=== PATIENT | female | born 2000 | race Caucasian/White ===

== ENCOUNTER 2020-07-14 17:13 | Outpatient (REF) | payer MEDICAID, SELFPAY | END 2020-07-14 17:14 | disposition home or self-care (01) | LOC: HO.LAB 17:13 | PROVIDERS: Visit Provider Internal Medicine | DX: Z20.828 Contact with and (suspected) exposure to other viral communicable diseases (principal) | CPT/HCPCS: C9803; U0003 ==

== ENCOUNTER → 2020-07-16 11:38 | Outpatient (BNVA) | payer MEDICAID, SELFPAY | PROVIDERS: Visit Provider Advanced Practice Midwife | DX: Z30.431 Encounter for routine checking of intrauterine contraceptive device (principal) | CPT/HCPCS: 99212 ==

== ENCOUNTER 2020-09-30 15:50 | Emergency (ER) | payer MEDICAID, SELFPAY ==
[2020-09-30 18:47] VITALS: BP 117/81; PULSE 80; RESP 16; TEMP 37.1; O2SAT 99; BMI 33.0
--- NOTE | 2020-09-30 19:11 | ED_ITS ---
HPI - Back Pain/Injury General Chief Complaint: Back Pain/Injury Stated Complaint: back pain Source: patient Mode of arrival: ambulatory Limitations: no limitations History of Present Illness HPI Narrative: Patient presents to the ED for left lower back pain after picking up her son's toy. Patient states she bent down and got up quickly and then felt pain in her lower back. Patient denies falling to the ground or any blunt trauma to the back. Patient states no abdominal pain, nausea, vomiting, fever, chills, dysuria, hematuria, or flank pain. MD elicited complaint: back pain Related Data Previous Rx's Medication Instructions Recorded ibuprofen 600 mg tablet 600 mg PO Q8H PRN #60 tab 07/16/20 cyclobenzaprine 10 mg PO TID PRN #15 tab 09/30/20 naproxen 500 mg PO BID PRN #20 tab 09/30/20 Allergies Allergy/AdvReac Type Severity Reaction Status Date / Time No Known Allergies Allergy Verified 07/16/20 11:46 [No Known Allergies*] Review of Systems Review of Systems: Yes all other systems are reviewed and are negative Constitutional: Constitutional: Reports as per HPI and Reports no additional constitutional complaints Eyes: Eyes: Reports as per HPI and Reports no additional eye complaints ENT: Reports system reviewed and no additional complaints, except as documented and Reports as per HPI Cardiovascular: Cardiovascular: Reports as per HPI and Reports no additional cardiovascular complaints Respiratory: Respiratory: Reports as per HPI and Reports no additional respiratory complaints Gastrointestinal: Gastrointestinal: Reports as per HPI and Reports no additional gastrointestinal complaints Genitourinary: Genitourinary: Reports no additional female genitourinary complaints and Reports as per HPI Musculoskeletal: Musculoskeletal: Reports no additional musculoskeletal complaints, Reports as per HPI and Reports back pain Neurologic: Reports system reviewed and no additional complaints, except as documented and Reports as per HPI Psychiatric: Psychiatric: Reports no additional psychiatric complaints and Reports as per HPI PMFSH Past Medical History Medical History No active medical problems Surgical History No history of previous surgery Family History Family History Mother HTN (hypertension) Maternal Grandmother HTN (hypertension) Maternal Grandfather Diabetes mellitus Maternal Aunt Uterine cancer Social History Social History Alcohol intake: never Smoking Status: Former smoker Use of substances other than those prescribed or required for medical reasons: No Any prior treatment program specific to substance use: No Advance Directives: No Advance Directives Information Provided: No Gender identity: female Physical Exam Vital Signs: Vital Signs: Last Vital Signs Temp 98.7 F 09/30/20 18:47 Pulse 80 09/30/20 18:47 Resp 16 09/30/20 18:47 BP 117/81 09/30/20 18:47 Pulse Ox 99 09/30/20 18:47 Body Mass Index 33.0 Const: General: cooperative, healthy appearing, comfortable, no acute distress, well developed, alert and awake Orientation/consciousness: patient oriented x3 HENMT: Head: Yes normal to inspection, Yes No palpable skull fracture present, Yes normocephalic, Yes atraumatic and Yes abrasion Eyes: General: appearance normal, both eyes and all related structures Neck: Neck: Yes normal visual inspection, Yes full ROM, Yes no lymphadenopathy, Yes no meningeal signs, Yes trachea midline, Yes supple and No tender Chest: Chest palpation & inspection: normal inspection of the chest and normal palpation of entire chest wall Resp: Effort & Inspection: normal respiratory effort and able to speak in complete sentences Auscultation: clear to auscultation bilaterally Cardio: Jugular venous distension: no JVD Heart sounds: S1 normal heart sound present and S2 normal heart sound present GI: Inspection: Yes normal to inspection and No abdominal wall ecchymosis Palpation (GI): Soft to palpation, not firm, nontender, no guarding and not rigid : General: No CVA tenderness and Yes no CVA tenderness Back/Spine/Pelvis: Back: no CVA tenderness, No CVA tenderness and back tenderness (Positive for left lumbar muscular pain. Negative for spine tenderness) Skin: General skin exam: no rashes or lesions noted and elasticity normal Neuro: General: patient oriented x3, no meningeal signs and CN's II-XI intact bilaterally Cranial nerves: Yes CN's II-XII intact bilaterally Extrem: General: Yes normal to inspection and Yes full ROM Psych: Appearance: grossly normal, well kempt and not disheveled Course Course Course Narrative: History physical exam indicate muscular back pain. Negative for x-ray indication. Negative for spine tenderness. Reevaluation(s) Reevaluation #1: Patient will be discharged with naproxen and Flexeril. Patient states she is not . No need for imaging. Negative for spine tenderness negative for CVA flank. Time: 19:22 MDM - Back Pain/Injury MDM Narrative Medical decision making narrative: Back strain Discharge Plan Discharge Clinical Impression: Back strain Patient Disposition: Home, Self-Care Instructions: Low Back Strain (ED) Additional Instructions: Return to the ED immediately for any abdominal pain, nausea, vomiting, fever, chills, dysuria, hematuria, flank pain, weakness, dizziness, or any other concerning symptoms. Follow up with PCP Prescriptions: New naproxen 500 mg tablet 500 mg PO BID PRN (Reason: pain) Qty: 20 RF: 0 cyclobenzaprine 10 mg tablet 10 mg PO TID PRN (Reason: muscle spasm) Qty: 15 RF: 0 No Action ibuprofen 600 mg tablet 600 mg PO Q8H PRN (Reason: pain) Qty: 60 RF: 0 Stand Alone Forms: Work/School Release Interventions: ED Discharge Assessment Last Done: 09/30/20 19:41 Discharge Date/Time: 09/30/20 19:54 Print Language: Moldovan
== END 2020-09-30 19:54 | disposition home or self-care (01) ==
PROVIDERS: Emergency Provider Internal Medicine
DX: S39.012A Strain of muscle, fascia and tendon of lower back, initial encounter (principal); X58.XXXA Exposure to other specified factors, initial encounter; Y93.9 Activity, unspecified; Y92.9 Unspecified place or not applicable; Y99.9 Unspecified external cause status; Z79.899 Other long term (current) drug therapy; Z87.891 Personal history of nicotine dependence
CPT/HCPCS: 99283; 99284

== ENCOUNTER 2021-09-01 19:25 | Emergency (ER) | payer MEDICAID, SELFPAY ==
[2021-09-01 19:51] VITALS: BP 154/90; PULSE 94; RESP 18; TEMP 36.8; O2SAT 99; BMI 32.1
[2021-09-01 20:17] LABS: COVID-19 Test Positive (Negative)
--- NOTE | 2021-09-02 04:25 | ED_ITS ---
HPI - General Adult General Chief complaint: General Medical Stated complaint: sore throat, nausea Time Seen by Provider: 09/02/21 03:44 Source: patient Mode of arrival: ambulatory History of Present Illness HPI narrative: 21-year-old female without significant past medical history presents with sore throat, cough, nasal congestion, and headache with subjective low-grade fevers denies any shortness of breath. Patient states that she was vaccinated in the summer with Pfizer. Related Data Previous Rx's Medication Instructions Recorded ibuprofen 600 mg tablet 600 mg PO Q8H PRN #60 tab 07/16/20 cyclobenzaprine 10 mg tablet 10 mg PO TID PRN #15 tab 09/30/20 naproxen 500 mg tablet 500 mg PO BID PRN #20 tab 09/30/20 Allergies Allergy/AdvReac Type Severity Reaction Status Date / Time No Known Allergies Allergy Verified 09/01/21 19:51 [No Known Allergies*] Review of Systems Review of Systems: Pertinent positives and negatives as stated in HPI 10 point review of systems is otherwise negative. PMFSH Past Medical History Source: nursing notes reviewed Medical History No active medical problems Surgical History No history of previous surgery Family History Family History Mother HTN (hypertension) Maternal Grandmother HTN (hypertension) Maternal Grandfather Diabetes mellitus Maternal Aunt Uterine cancer Social History Social History Alcohol intake: never Advance Directives: No Advance Directives Information Provided: Yes Patient : No Gender identity: Female Physical Exam Vital Signs: Vital Signs: Last Vital Signs Temp 98.3 F 09/01/21 19:51 Pulse 94 09/01/21 19:51 Resp 18 09/01/21 19:51 BP 154/90 H 09/01/21 19:51 Pulse Ox 99 09/01/21 19:51 BMI result Body Mass Index 32.1 VITAL SIGNS: Reviewed. GENERAL: Well developed, well nourished, in no acute distress. HEAD: Normocephalic/atraumatic EYES: PERRLA, EOMI EARS: Ext canals without abnormality, TMs non-bulging and non-erythematous NOSE: Nares patent bilateral OROPHARYNX: no oral lesions noted, posterior pharynx clear and non-erythematous without noted tonsillar enlargement/erythema/exudates NECK: Supple, no adenopathy LUNGS: Normal breath sounds. No adventitious sounds or accessory muscle use. SpO2<99> CARDIOVASCULAR: Regular rate and rhythm without noted murmurs ABDOMEN: Soft, non-tender, non-distended with bowel sounds. NEUROLOGIC: Alert and oriented x 4. Course Course Course Narrative: 21-year-old female with history and clinical presentation consistent with viral syndrome and on review of laboratory investigations she is noted to be COVID-19 positive and was counseled on all isolation procedures as per state and Federal guidelines. Medical Decision Making Lab Data Labs: Lab Results 09/01/21 Range/Units 19:57 COVID-19 ([facility]) Positive A (Negative) COVID-19 Clin Com See Note Discharge Plan Discharge Clinical Impression: Lab test positive for detection of COVID-19 virus, Viral syndrome Patient Disposition: Home, Self-Care Instructions: Viral Syndrome (ED), COVID-19 (Coronavirus Disease 2019) (ED) Additional Instructions: 1. Recommend [id number] Tylenol/ibuprofen as needed for headaches, body aches, temperatures greater than 100.4. Increase fluid hydration especially with water. Consider a cool mist humidifier at your bedside while sleeping at night. 2. Your COVID-19 test was positive today and you are required to isolate for 14 days and follow all state and Federal guidelines. 3. Follow-up with your primary care provider via telemedicine appointment for re-evaluation and further outpatient management. Return to the ER for worsening symptoms. Prescriptions: No Action naproxen 500 mg tablet 500 mg PO BID PRN (Reason: pain) Qty: 20 RF: 0 cyclobenzaprine 10 mg tablet 10 mg PO TID PRN (Reason: muscle spasm) Qty: 15 RF: 0 ibuprofen 600 mg tablet 600 mg PO Q8H PRN (Reason: pain) Qty: 60 RF: 0 Referrals: [facility] [Primary Care Provider] - 2 days
== END 2021-09-02 05:03 | disposition home or self-care (01) ==
PROVIDERS: Emergency Provider Student in an Organized Health Care Education/Training Program
DX: U07.1 COVID-19 (principal); B34.9 Viral infection, unspecified
CPT/HCPCS: 87635; 99283

== ENCOUNTER 2022-01-21 22:36 | Emergency (ER) | payer MEDICAID, SELFPAY ==
[2022-01-21 23:25] VITALS: BP 125/77; PULSE 73; RESP 18; TEMP 37.2; O2SAT 97; BMI 29.9
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
[2022-01-22 03:20] VITALS: BP 128/78; PULSE 77; RESP 16; TEMP 37.1; O2SAT 97
== END 2022-01-22 03:21 | disposition home or self-care (01) ==
PROVIDERS: Emergency Provider Emergency Medicine Emergency Medical Services
DX: S13.4XXA Sprain of ligaments of cervical spine, initial encounter (principal); S43.401A Unspecified sprain of right shoulder joint, initial encounter; S20.221A Contusion of right back wall of thorax, initial encounter; V43.62XA Car passenger injured in collision with other type car in traffic accident, initial encounter; Y93.9 Activity, unspecified; Y92.410 Unspecified street and highway as the place of occurrence of the external cause; Y99.9 Unspecified external cause status
CPT/HCPCS: 99282

== ENCOUNTER 2024-10-23 18:26 | Emergency (ER) | payer OTHER, SELFPAY ==
--- NOTE | ~2024-10-23 | XR_ITS ---
CLINICAL HISTORY: fall 3 views lumbar spine Comparison: None Findings: Normal vertebral body alignment. Age indeterminate nondisplaced fracture at the sacrococcygeal junction. Vertebral body heights and disc spaces are preserved. IMPRESSION: 1. Age indeterminate nondisplaced fracture at the sacrococcygeal junction. This document has been electronically signed by: Joselyn Corbett MD on 10/23/2024 19:22:42
--- NOTE | ~2024-10-23 | CT_ITS ---
CLINICAL HISTORY: Fall CT cervical spine without contrast Comparison: None Findings: Straightening of the cervical spine is likely positional. No acute fractures or dislocations. No acute findings on limited view of the intracranial contents. No cervical fluid collections or masses. Lung apices are clear. IMPRESSION: No acute findings. This document has been electronically signed by: Joselyn Corbett MD on 10/23/2024 19:33:52
--- NOTE | ~2024-10-23 | CT_ITS ---
CLINICAL HISTORY: fall CT head without contrast Comparison: None Findings: No intra-axial mass, midline shift, hydrocephalus, or acute hemorrhage. Martin-white matter differentiation is preserved. The visualized paranasal sinuses and mastoid air cells are normal. The orbits are unremarkable. There is no acute fracture. IMPRESSION: 1. No acute intracranial findings. This document has been electronically signed by: Joselyn Corbett MD on 10/23/2024 19:35:08
[2024-10-23 18:42] VITALS: BP 123/76; PULSE 70; RESP 18; TEMP 36.4; O2SAT 97; BMI 34.9
--- NOTE | 2024-10-23 18:50 | ED.GENADULT ---
HPI - General Adult General Chief complaint: Fall Stated complaint: fall back pain Time Seen by Provider: 10/23/24 22:36 Source: patient Mode of arrival: ambulatory Limitations: no limitations History of Present Illness ED Provider: DR. Yi HPI narrative: 24-year-old female slipped on the ice yesterday and fell backward hitting head and neck and lower back, no weakness, no numbness, no severe headache, no nausea, no vomiting. Related Data Previous Rx's ?Medication ?Instructions ?Recorded ibuprofen 600 mg tablet 600 mg PO Q8H PRN pain #60 tabs 07/16/20 cyclobenzaprine 10 mg tablet 10 mg PO TID PRN muscle spasm #15 09/30/20 tabs naproxen 500 mg tablet 500 mg PO BID PRN pain #20 tabs 09/30/20 ibuprofen 600 mg tablet 600 mg PO Q8H PRN pain #10 tabs 10/23/24 Allergies Allergy/AdvReac Type Severity Reaction Status Date / Time No Known Allergies Allergy Verified 10/23/24 18:45 [No Known Allergies*] Review of Systems Review of Systems: All other systems are reviewed and are negative Constitutional: Reports as per HPI and Reports no additional constitutional complaints Eyes: Reports as per HPI and Reports no additional eye complaints Reports system reviewed and no additional complaints, except as documented Cardiovascular: Reports as per HPI and Reports no additional cardiovascular complaints Respiratory: Reports as per HPI and Reports no additional respiratory complaints Gastrointestinal: Reports as per HPI and Reports no additional gastrointestinal complaints Genitourinary: Reports no additional female genitourinary complaints Musculoskeletal: Reports no additional musculoskeletal complaints Skin/Breast: Reports system reviewed and no additional complaints, except as docu Psychiatric: Reports no additional psychiatric complaints Endocrine: Reports no additional endocrine complaints Hematologic/Lymphatic: Reports no additional hematologic/lymphatic complaints Allergic/Immunologic: Reports no additional allergic/immunologic complaints Reports system reviewed and no additional complaints, except as documented and Reports Abnormal speech present [facility] Past Medical History Medical History No active medical problems Surgical History No history of previous surgery Family History Family History Mother HTN (hypertension) Maternal Grandmother HTN (hypertension) Maternal Grandfather Diabetes mellitus Maternal Aunt Uterine cancer Social History Social History Alcohol intake: never Advance Directives: No Advance Directives Information Provided: No Do you have a plan to hurt others: No Plan Patient : No Gender identity: Female Physical Exam ED Vital Signs: Vital Signs - 24 hr 10/23/24 18:42 10/23/24 23:06 10/23/24 23:37 Temperature 97.6 F 97.8 F 98.4 F Pulse Rate 70 66 82 Respiratory Rate 18 16 16 Blood Pressure 123/76 128/82 132/70 Pulse Oximetry 97 98 Oxygen Delivery Method Room Air Room Air BMI result Body Mass Index 34.9 Vital signs have been reviewed and appear to be correct. Blood pressure elevated. Heart rate normal. Respiratory rate normal. Temperature normal. Oxygen saturation normal. Appearance: Alert. Oriented X3. No acute distress. Head: Normal external exam. Normocephalic. Atraumatic. No Baer signs noted. No raccoon eyes noted Eyes: PERRLA. EOMI. Conjunctiva and sclera normal. Eyelids normal. ENT: TM's Normal. Pharynx normal. Uvula midline. Moist mucous membranes. No trismus noted. No drooling noted. No muffled voice noted. Neck: Normal inspection. Neck supple. FROM. No adenopathy. Thyroid Normal. No meningeal signs. No neck mass noted. CVS: Normal heart rate and rhythm. Heart sound normal. No murmurs noted. Pulses normal throughout. Respiratory: No respiratory distress. Painless inspiration. Breath sounds normal. No wheezes/rales/rhonchi noted. Chest nontender. No accessory muscle usage noted or decreased air movement noted. Abdomen: Soft and nontender. Bowel sounds normal in all 4 quadrants. No distention noted. No organomegaly noted. No visible injury noted. Back: No CVA tenderness. Full range of motion noted. A mild tenderness over the coccygeal process. Skin: Skin warm and dry. Normal skin color. Normal skin turgor. No rashes/lesions/lacerations noted. Extremities: No lower extremity edema. Extremities exhibit normal range of motion. Extremities nontender. Neuro: Mental status: Normal attention, orientation, memory, and affect. Cranial nerves: Pupils are equal, round and reactive to light, EOMI, visual berrios are fall, face is symmetric, facial sensations are normal. Motor examination normal muscle tone, strength to 4 extremities. DTR are +2, planter's are flexor. Sensory exam; normal coordination, no ataxia, gait stable. Cerebellar exam: [id number]-fv-cski and oheu-qg-smkn is normal. Extrapyramidal system: No tremors, no rigidity with normal facial expressions. Pronator drift not present Course Course Course Narrative: RME: 24-year-old female presents to ED for headache and low back pain after slipping and falling on ice yesterday. Patient denies any nausea vomiting chest pain shortness of breath abdominal pain. Patient states just headache and low back pain Reevaluation(s) Reevaluation #1: Sacrococcygeal junction fracture, no neurological deficit, able to ambulate on toes and heels in the emergency department. Time: 23:05 Medical Decision Making Differential Diagnosis Differential Diagnoses: The differential diagnosis associated with the presentation includes ( Intracranial bleed, cervical spine injury, chest injury, abdominal injury, extremity injury, lower back injury.) Admission/Observation Consideration of admission/observation: Escalation of care including admission/observation considered Independent Interpretation I performed an independent interpretation of an: Plain X-Ray ( Lumbar spine x-ray:Normal vertebral body alignment. Age indeterminate nondisplaced fracture at the sacrococcygeal junction. Vertebral body heights and disc spaces are preserved.) and CT Scan ( Head and cervical spine: No acute intracranial pathology, no cervical spine fracture.) Radiology Impression Discussion of test interpretation with radiology: I have reviewed the radiologist's reading. Discharge Plan Discharge Clinical Impression: Fall, Closed fracture of coccyx Patient Disposition: Home, Self-Care Instructions: Coccyx Injury (ED) Prescriptions: New ibuprofen 600 mg tablet 600 mg PO Q8H PRN (Reason: pain) Qty: 10 0RF No Action naproxen 500 mg tablet 500 mg PO BID PRN (Reason: pain) Qty: 20 0RF cyclobenzaprine 10 mg tablet 10 mg PO TID PRN (Reason: muscle spasm) Qty: 15 0RF Rx Instructions: side effect is drowsiness. Do not take at work or while driving. ibuprofen 600 mg tablet 600 mg PO Q8H PRN (Reason: pain) Qty: 60 0RF Rx Instructions: To be taken during first few days for menses (heavier bleeding/uterine cramping). Interventions: ED Discharge Assessment Last Done: 10/23/24 23:37 Discharge Date/Time: 10/23/24 23:40 Print Language: [place] Leonean
--- NOTE | 2024-10-23 22:39 | PC.NURSE ---
pt brought back from ED WR, resting on ED stretcher, awaiting provider evaluation.
--- OUTSIDE RECORDS SUMMARY | 2024-10-23 22:45 | XMS_ITS | Clinical Summary ---
Author Organization [employer] Address [address] [place] [address] Care Team Providers Care Commutator V Ring Assembler Name Role Phone Unavailable Primary Care Provider Unavailabl e Encounters Date Type Department Care Team Description 09/02/2024 Telephone [facility] [address] [place] [address] Janice Soni NP medical question from Last 3 Months Social History Tobacco Use Types Packs/Day Years Used Date Smoking Tobacco: Never Assessed Comments Unknown Sex and Gender Information Value Date Recorded Sex Assigned at Female 06/26/2022 10:30 AM EDT Legal Sex Female 10:30 AM EDT Gender Identity Female 06/26/2022 10:30 AM EDT Sexual Orientation Choose not to disclose 2021 10:30 AM EDT Last Filed Vital Signs Vital Sign Reading Time Taken Comments Blood Pressure 122/82 08/14/2019 12:12 AM EST Pulse 64 08/14/2019 12:12 AM EST Temperature - - Respiratory Rate - - Oxygen Saturation - - Inhaled Oxygen Concentration - - Weight 62.2 kg (137 lb 3.2 oz) 08/14/2019 12:12 AM EST Height 157.9 cm (5' 2.16 ) 08/14/2019 12:[address] Body Mass Index 24.97 08/14/2019 12:12 AM EST Plan of Treatment Health Maintenance Due Date Last Done Comments Depression Screening 2000 Alcohol/Substance Use Screening 2012 Tobacco Screening 2012 Family Planning (PISQ) 2015 Hepatitis A Vaccines (2 of 2 - 2-dose series) 02/15/2017 08/17/2016 Pap Smear 2021 COVID-19 Vaccine ( season) 2024 12/25/2020, 12/04/2020 Influenza Vaccine (#1) 2024 08/14/2019, 2015 DTaP/Tdap/Td Vaccines (7 - Td or Tdap) 01/19/2030 01/20/2020, 04/12/2012, 12/08/2004, Additional history exists Zoster Vaccines (1 of 2) 2050 RSV Patients and Patients Aged 60 years or older (1 - 1-dose 75+ series) 2075 HIB Vaccines Aged Out 04/10/2001, 09/28, 2000 No longer eligible based on patient's age to complete this topic Hepatitis B Vaccines Completed 04/10/2001, 2000, 2000 IPV Vaccines Completed 2004, 03/27, 2000, Additional history exists Meningococcal Vaccine Aged Out 03/28/2013 No meaghan eufemia eligible based on patient's age to complete this topic HPV Vaccines Completed 08/17/2016, 03/28/2013 Pneumococcal Vaccine: Pediatrics (0 to 5 Years) and At-Risk Patients (6 to 49) Years) Aged Out No longer eligible based on patient's age to complete this topic RSV under 20 months Aged Out No longe r eligible based on patient's age to complete this topic Rotavirus Vaccines Aged Out No longer eligible based on patient's age to complete this topic
--- OUTSIDE RECORDS SUMMARY | 2024-10-23 22:45 | XMS_ITS | Encounter Summary ---
Author Organization [facility] Address [address] [place] [address] Care Team Providers Care Distance Education Coordinator Name Role Phone Enrique Goddard MD Primary Care Provider Enrique Goddard MD Unavailable [phone] Encounter Details Date Type Department Care Team (Late st Contact Info) Description 10/16/2023 Scanned Document [facility] [address] [address] Gastroenterology, Scan Social History Tobacco Use Types Packs/Day Years Used Date Smoking Tobacco: Never Smokeless Tobacco: Never Alcohol Use Standard Drinks/Week Comments No 0 (1 standard drink = 0.6 oz pur e alcohol) Sex and Gender Information Value Date Recorded Sex Assigned at Not on file Gender Identity Not on file Sexual Orientation Not on file documented as of this encounter Plan of Treatment Not on file documented as of this encounter Visit Diagnoses Not on filedocumented in this encounter Care Teams Distance Education Coordinator Relationship Specialty Start Date End Date Enrique Goddard MD PCP - General Pediatric, General 04/27/16 Enrique Goddard MD Pediatric, General 04/27/16 documented as of this encounter
--- OUTSIDE RECORDS SUMMARY | 2024-10-23 22:45 | XMS_ITS | Encounter Summary ---
Author Organization [facility] Address [address] [place] [address] Care Team Providers Care Instrumentation And Controls Designer Name Role Phone Enrique Goddard MD Primary Care Provider Enrique Goddard MD Unavailable [phone] Encounter Details Date Type Department Care Team (Late st Contact Info) Description 05/03/2016 Scanned Document [facility] [address] [place] [phone] Meredith Blake, RAS [address] [place] [address] Social History Tobacco Use Types Packs/Day Years Used Date Smoking Tobacco: Never Alcohol Use Standard Drinks/Week Comments [...] on filedocumented in this encounter Care Teams Instrumentation And Controls Designer Relationship Specialty Start Date End Date Enrique Goddard MD PCP - General Pediatric, General 04/27/16 Enrique Goddard MD Pediatric, General 04/27/16 documented as of this encounter
--- OUTSIDE RECORDS SUMMARY | 2024-10-23 22:45 | XMS_ITS | Encounter Summary ---
Author Organization [facility] Address [address] [place] [address] Care Team Providers Care Investment Accountant Name Role Phone Enrique Goddard MD Primary Care Provider Enrique Goddard MD Unavailable Encounter Details Date Type Department Care Team (Late st Contact Info) Description 05/03/2016 Scanned Document [facility] [address] [place] [phone] Meredith Blake, RAS [address] [place] [address] Social History Tobacco Use Types Packs/Day Years [...] on filedocumented in this encounter Care Teams Investment Accountant Relationship Specialty Start Date End Date Enrique Goddard MD PCP - General Pediatric, General 04/27/16 Enrique Goddard MD Pediatric, General 04/27/16 documented as of this encounter
--- OUTSIDE RECORDS SUMMARY | 2024-10-23 22:45 | XMS_ITS | Encounter Summary ---
Author Organization [facility] Address [address] [place] [address] Care Team Providers Care Bobbin Drier Name Role Phone Enrique Goddard MD Primary Care Provider Enrique Goddard MD Unavailable Encounter Details Date Type Department Care Team (Late st Contact Info) Description 05/03/2016 Scanned Document [facility] [address] [place] [phone] Meredith Blake, RAS [address] [place] [address] Social History Tobacco Use Types Packs/Day Years [...] on filedocumented in this encounter Care Teams Bobbin Drier Relationship Specialty Start Date End Date Enrique Goddard MD PCP - General Pediatric, General 04/27/16 Enrique Goddard MD Pediatric, General 04/27/16 documented as of this encounter
--- OUTSIDE RECORDS SUMMARY | 2024-10-23 22:45 | XMS_ITS | Encounter Summary ---
Author Organization [facility] Address [address] [place] [address] Care Team Providers Care Cleaning Maid Name Role Phone Enrique Goddard MD Primary Care Provider [phone] Enrique Goddard MD Unavailable [phone] Encounter Details Date Type Department Care Team (Late st Contact Info) Description 05/03/2016 Scanned Document [facility] [address] [place] [phone] Meredith Blake, RAS [address] [place] [address] Social History Tobacco Use Types Packs/Day Years [...] on filedocumented in this encounter Care Teams Cleaning Maid Relationship Specialty Start Date End Date Enrique Goddard MD PCP - General Pediatric, General 04/27/16 Enrique Goddard MD Pediatric, General 04/27/16 documented as of this encounter
--- OUTSIDE RECORDS SUMMARY | 2024-10-23 22:45 | XMS_ITS | Clinical Summary ---
Author Organization [facility] Address [address] [place] [address] Care Team Providers Care Limerock Tower Loader Name Role Phone Enrique Goddard MD Primary Care Provider [phone] Enrique Goddard MD Unavailable [phone] Allergies No known active allergies Immunizations Name Administration Dates Next Due DTaP 12/08/2004,10/26/2003,2000 ,2000 HPV Quadrivalent 04/07/2016,03/28/2013 Hepatitis B 04/09/2001,2000,2000 IPV 2004,04/10/2001,2000 ,2000 MMR 2004,05/07/2001 Meningococcal MCV4O (Menveo) 04/24/2016,03/28/20 13 Tdap 04/11/2012 Varicella 04/12/2012,05/07/2001 Social History Tobacco Use Types Packs/Day Years Used Date Smoking Tobacco: Never Smokeless Tobacco: Never Alcohol Use Standard Drinks/Week Comments No 0 (1 standard drink = 0.6 oz pur e alcohol) Sex and Gender Information Value Date Recorded Sex Assigned at Not on file Gender Identity Not on file Sexual Orientation Not on file Last Filed Vital Signs Vital Sign Reading Time Taken Comments Blood Pressure 115/78 04/29/2019 2:58 PM EDT Pulse 68 04/29/2019 2:58 PM EDT Temperature 37.2 ??C (98.9 ??F) 04/29/2019 1:45 PM ED T Respiratory Rate 18 04/29/2019 2:58 PM EDT Oxygen Saturation 100% 04/29/2019 2:58 PM EDT Inhaled Oxygen Concentration - - Weight 62.1 kg (137 lb) 04/29/2019 1:45 PM EDT Height 154.9 cm (5' 1 ) 05/02/2016 1:21 PM EDT Body Mass Index - - Plan of Treatment Health Maintenance Due Date Last Done Comments Hepatitis C Virus Screening 2000 HIV Screening 2013 Pap Smear (Ages 21-65) 2021 DTaP/Tdap/Td Vaccines (6 - Td or Tdap) 04/11/2022 04/11/2012, 12/08/2004, 10/26/2003, Additional history exists Influenza Vaccine 03/27/2024 COVID-19 Vaccine ( season) 2024 Hepatitis B Vaccines Completed 04/09/2001, 2000, 2000 HPV Vaccines Completed 04/07/2016, 03/28/2013 Pneumococcal Vaccine: Pediatric (0-5 Years) and At-Risk Patients (6 to 49 Years) Aged Out No longer eligible based on patient's age to complete this topic Care Teams Limerock Tower Loader Relationship Specialty Start Date End Date Enrique Goddard MD PCP - General Pediatric, General 04/27/16 Enrique Goddard MD Pediatric, General 04/27/16
[2024-10-23 23:06] VITALS: BP 128/82; PULSE 66; RESP 16; TEMP 36.6; O2SAT 98
[2024-10-23 23:37] VITALS: BP 132/70; PULSE 82; RESP 16; TEMP 36.9
== END 2024-10-23 23:40 | disposition home or self-care (01) ==
PROVIDERS: Emergency Provider Emergency Medicine
DX: S32.2XXA Fracture of coccyx, initial encounter for closed fracture (principal); W00.0XXA Fall on same level due to ice and snow, initial encounter; R51.9 Headache, unspecified; Y93.89 Activity, other specified; Y92.89 Other specified places as the place of occurrence of the external cause; Y99.9 Unspecified external cause status
CPT/HCPCS: 70450; 72100; 72125; 99284

== ENCOUNTER → 2024-10-23 18:48 | Outpatient (BNV) | payer MEDICAID, SELFPAY | PROVIDERS: Visit Provider Radiology Diagnostic Radiology | DX: S09.90XA Unspecified injury of head, initial encounter (principal); S19.9XXA Unspecified injury of neck, initial encounter; S39.92XA Unspecified injury of lower back, initial encounter | CPT/HCPCS: 70450; 72100; 72125 ==

== ENCOUNTER 2025-03-11 13:57 | Outpatient (AMB) | payer OTHER, SELFPAY ==
[2025-03-11 14:04] VITALS: BP 132/78; PULSE 76; RESP 14; TEMP 37.3; O2SAT 97; BMI 35.4
--- NOTE | 2025-03-11 14:04 | MHC.PC.OV ---
Vital Signs 03/11/25 14:04 Height 5 ft 2 in Weight 193 lb 8 oz BMI 35.4 BP 132/78 Blood Pressure Location Lt brachial Position Sitting Respiration 14 Pulse 76 Temp 99.2 F Temp Source Oral Pulse Oximetry (%) 97 Oxygen Delivery Method Room Air Intake Visit Reasons: establish [facility] Blade Bender Furnace Tender Required: No Accompanied by: Self / Same As Patient Allergies No Known Allergies (No Known Allergies*) Allergy (Verified 03/11/25 14:10) Medication List - Last Reconciled 03/11/25 by NILSON Bruno cyclobenzaprine 10 mg PO TID PRN ibuprofen 600 mg PO Q8H PRN ibuprofen 600 mg PO Q8H PRN naproxen 500 mg PO BID PRN Tobacco use date assessed: 03/11/25 Dental Screening Dental Screen Date: 03/11/25 Did you have a dental visit in the last 12 months?: No Did you have a dental problem in the last 6 months where you did not have access to dental care?: No Was dental information given to patient?: No HPI establish care HPI Details Patient is a 24-year-old female who was presenting to [facility]. She is currently and is under the care of her OBGYN Previous PCP:More than 5 years ago Last visit: same Last PE:same Specialist:no OBGYN:Ricardo Rice. she is currently 14 WEEKS AND 4 days. Past medical history: Medications: Family HX: no Problem: The patient is a 24-year-old female presenting with back pain and management. The patient reports a history of coccyx fracture sustained in September after falling on ice. She continues to experience back pain, primarily localized to the right side, which occasionally becomes severe enough to impair her ability to stand or walk. She has not had a primary care provider for over five years and has not undergone a physical examination since she was 19 years old. The patient is currently 14 weeks and is receiving care from an PRIVATE DUTY NURSE in [place]. She is advised to avoid medications that could affect the fetus and to use topical treatments for pain management. Reports that she is due to deliver on September 04 2024 [facility] Medical History No active medical problems Surgical History No history of previous surgery Family History Mother HTN (hypertension) Maternal Grandmother HTN (hypertension) Maternal Grandfather Diabetes mellitus Maternal Aunt Uterine cancer Social History Housing: Apartment Alcohol intake: never Patient Tobacco Use Status: Never used Tobacco e-Cigarette/Vaping Use: Never Used service: No Current occupational status: employed Gender identity: Female Female Reproductive History Menstrual Age of Menarche: 11 Questionnaire PHQ-9 Over the last 2 weeks, how often have you been bothered by any of the following problems? 1. Little interest or pleasure in doing things: not at all 2. Feeling down, depressed, or hopeless: not at all 3. Trouble falling or staying asleep, or sleeping too much: not at all 4. Feeling tired or having little energy: not at all 5. Poor appetite or overeating: not at all 6. Feeling bad about yourself - or that you are a failure or have let yourself or your family down: not at all 7. Trouble concentrating on things, such as reading the newspaper or watching television: not at all 8. Moving or speaking so slowly that other people could have noticed. Or the opposite - being so fidgety or restless that you have been moving around a lot more than usual: not at all 9. Thoughts that you would be better off or of hurting yourself in some way: not at all Total score: 0 Depression Screening Interpretation: Negative Depression Screening Done: Yes 06237 - PHQ-9 Billing: Yes Source: Developed by Drs. Dada Ramires, Carol Shaw, Marck Fuentes and colleagues, with an educational yusuf from [employer]. Thrive Questionnaire Date Thrive assessed: 03/11/25 I am a: Patient What is your living situation today?: I have a steady place to live Within the past 12 months, did the food you bought not last and you didn't have the money to get more?: Never true Within the past 12 months, did you worry whether your food would run out before you got money to buy more?: Never true Do you have trouble paying for medicines?: No Do you have trouble getting transportation to medical appointments?: No Do you have trouble paying your heating and electricity bill?: No Do you have trouble taking care of your child, family member or friend?: No Do you have trouble with day-to-day activities such as bathing, preparing meals, shopping, managing finances, etc.?: No Are you currently unemployed and looking for a job?: No Are you interested in more education?: No Please select the resources that you would like help with: None Currently or been in a relationship where the following occur: No concerns reported THRIVE Score: 0 AUDIT C Alcohol Use Questionnaire (AUDIT-C) 1. How often do you have a drink containing alcohol?: Never Total Score: 0 JACQUELINE-7 AMB Questionnaire JACQUELINE-7 Date JACQUELINE - 7 assessed: 03/11/25 Feeling nervous, anxious, or on edge: 0 = Not at all Not being able to stop or control worryin = Not at all Worrying too much about different things: 0 = Not at all Trouble relaxin = Not at all Being so restless that it is hard to sit still: 0 = Not at all Becoming easily annoyed or irritable: 0 = Not at all Feeling afraid as if something awful might happen: 0 = Not at all Total JACQUELINE-7 score (0-4 normal; 5-9 mild; 10-14 moderate; 15-21 severe): 0 Source: Developed by Drs. Dada Ramires, Carol Shaw, Marck Fuentes and colleagues, with an educational yusuf from [employer]. JACQUELINE-7 Assessment Billing JACQUELINE-7 Assessment Tool: JACQUELINE-7 Assessment 85627 Review of Systems Const Denies headache(s) Eyes Denies loss of vision ENT Denies vertigo, Denies dizziness, Denies headache(s) and Denies sore throat Card Denies chest pain, Denies leg edema and Denies lightheadedness Resp Denies cough, Denies hemoptysis and Denies wheezing GI Denies abdominal pain, Denies melena, Denies constipation, Denies diarrhea and Denies vomiting Denies urinary frequency, Denies dysuria and Denies urinary urgency Musc Reports back pain (Lower back/coccyx-right side), Denies arthralgias, Denies joint swelling, Denies numbness and Denies tingling Neuro Denies Abnormal speech present, Denies behavioral changes, Denies vertigo, Denies dizziness, Denies headache(s), Denies loss of vision, Denies memory loss, Denies numbness and Denies tingling Psych Denies anxiety, Denies behavioral changes, Denies depression, Denies memory loss and Denies panic attacks Andrea/Lymph Denies easy bleeding and Denies easy bruising Aller/Immun Denies wheezing Physical exam (Primary Care) Vital Signs: Last Vital Signs Temp 99.2 F 03/11/25 14:04 Pulse 76 03/11/25 14:04 Resp 14 03/11/25 14:04 BP 132/78 03/11/25 14:04 Pulse Ox 97 03/11/25 14:04 Oxygen Delivery Method Room Air 03/11/25 14:04 BMI result Body Mass Index 35.4 Tobacco/Smoking Status: Tobacco use Status Tobacco use date assessed 03/11/25 03/11/25 14:08 Patient Tobacco Use Status Never used Tobacco 03/11/25 14:08 e-Cigarette/Vaping Use Never Used 03/11/25 14:08 PHQ-9: PHQ-9 Score PHQ-9: Total score 0 03/11/25 22:03 Depression Screening Interpretation: Negative Thrive Assessment: Date of Thrive Assessment Date Thrive assessed 03/11/25 03/11/25 14:08 Currently or been in a relationship where the following occur: No concerns reported Const General: healthy appearing, no acute distress, alert and awake Nutritional Appearance: well nourished Orientation/consciousness: oriented to person, oriented to place and oriented to time HENNC Ears: TM's normal bilaterally General nose exam: Normal nasal mucous membranes and turbinates present Eyes Conjunctivae: conjunctivae normal Sclerae: sclerae normal Pupils: Equal, round and reactive pupils present Neck Neck: Yes no lymphadenopathy and Yes no JVD Thyroid: Thyroid normal Carotids: no bruits Resp Effort & Inspection: normal respiratory effort and not tachypneic Auscultation: no crackles, no rales, no rhonchi and no wheezes Cardio Rate: regular rate Rhythm: regular rhythm Heart sounds: no murmurs and normal S1 and S2 GI Palpation (GI): Soft to palpation, nontender, no hepatomegaly and no splenomegaly Auscultation: normal bowel sounds General: Yes no CVA tenderness Back/Spine/Pelvis Back: no CVA tenderness Thoracic/Lumbar Spine: No lumbar spinal tenderness Coccyx: no swelling and no tenderness Skin General skin exam: no rashes or lesions noted and dry skin Neuro General: oriented to person, oriented to place and oriented to time Cranial nerves: Yes Equal, round and reactive pupils present Speech: No Abnormal speech present Gait exam (Neuro): Normal gait present Motor exam (neuro): no tremor noted Extrem Right upper extremity: full ROM Left upper extremity: full ROM Right lower extremity: full ROM; no edema Left lower extremity: full ROM; no edema Psych Mental Status: mental status grossly normal Speech and movement: Normal speech and movement present Affect: normal affect Attitude: cooperative Thought process: Normal thought process present Coding Level of Care Code New Pt Level 3 (06411) Diagnoses Encounter to establish care with new provider Z76.89 Right-sided low back pain without sciatica, unspecified chronicity M54.50 Chronicity: unspecified Back pain laterality: right Sciatica presence: without sciatica 14 weeks gestation of Z3A.14 Weeks of gestation: 14 weeks Additional Codes JACQUELINE-7 Assessment Billing - JACQUELINE-7 Assessment Tool: JACQUELINE-7 Assessment 55296 ([id number]) PHQ-9 - 48064 - PHQ-9 Billing: Yes ([id number]) Time Spent (min) 31 Assessment & Plan Assessment & Plan (1) Encounter to establish care with new provider: Code(s): Z76.89 - Persons encountering health services in other specified circumstances Category: Medical (2) Lower back pain: Code(s): M54.50 - Low back pain, unspecified Category: Medical Qualifiers: Chronicity: unspecified Back pain laterality: right Sciatica presence: without sciatica Qualified Code(s): M54.50 - Low back pain, unspecified (3) : Code(s): Z34.90 - Encounter for supervision of normal , unspecified, unspecified trimester Category: Medical Qualifiers: Weeks of gestation: 14 weeks Qualified Code(s): Z3A.14 - 14 weeks gestation of Plan The patient is advised to avoid medications that could potentially affect the fetus during her . Topical treatments, such as creams or biofreeze, are recommended for managing back pain. A lidocaine patch is prescribed to alleviate pain, with instructions to apply it as needed. The patient is scheduled for follow-up in eight months, with lab work to be completed a week prior to the appointment. Patient was informed and verbally consented to the use of an ambient scribe for clinic note documentation during this visit. Orders: Orders Hemoglobin A1c 8 Months Z - Persons encountering health services in other specified circumstances TSH reflex Free T4 8 Months Z. - Persons encountering health services in other specified circumstances Comprehensive Adel. Panel Fast 8 Months . - Persons encountering health services in other specified circumstances Complete Blood Count Auto Diff 8 Months Z. - Persons encountering health services in other specified circumstances UA CC w/rflx Micro + Cult 8 Months Z. - Persons encountering health services in other specified circumstances Lipid Panel 8 Months Z. - Persons encountering health services in other specified circumstances Vitamin D 25-OH Total 8 Months Z. - Persons encountering health services in other specified circumstances Medications: New lidocaine 5% leave on most painful area for up to 12 hrs 1 patch topical DAILY 30 ea 4RF
--- OUTSIDE RECORDS SUMMARY | 2025-03-11 14:46 | XMS_ITS | Encounter Summary ---
Author Organization [facility] Address [address] [place] [address] Care Team Providers Care Tester Semiconductor Packages Name Role Phone Enrique Goddard MD Primary Care Provider Enrique Goddard MD Unavailable Encounter Details Date Type Department Care Team (Late st Contact Info) Description 05/03/2016 Scanned Document [facility] [address] [place] [phone] Meredith Blake, RAS [address] [place] [address] Social History Tobacco Use Types Packs/Day Years Used Date Smoking Tobacco: Never Alcohol Use Standard Drinks/Week Comments No 0 (1 standard drink = 0.6 oz pur e alcohol) Comments No Sex and Gender Information Value Date Recorded Sex Assigned at Not on file Legal Sex Female 11:59 AM EDT Gender Identity Not on file Sexual Orientation Not on file documented as of this encounter Plan of Treatment Not on file documented as of this encounter Visit Diagnoses Not on filedocumented in this encounter Care Teams Tester Semiconductor Packages Relationship Specialty Start Date End Date Enrique Goddard MD PCP - General Pediatric, General 04/27/16 Enrique Goddard MD Pediatric, General 04/27/16 documented as of this encounter
--- OUTSIDE RECORDS SUMMARY | 2025-03-11 14:46 | XMS_ITS | Clinical Summary ---
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 Name Role Phone Unavailable Primary Care Provider Unavailabl e Social History Tobacco Use Types Packs/Day Years [...] Date Last Done Comments Depression Screening 2000 Disability Screening 2000 Alcohol/Substance Use Screening 2012 Tobacco Screening 2012 Family Planning (PISQ) 2015 Hepatitis A Vaccines (2 of 2 - 2-dose series) 02/15/2017 08/17/2016 Pap Smear 2021 COVID-19 Vaccine (3 - season) 2024 12/25/2020, 12/04/2020 Influenza Vaccine (#1) 2025 08/14/2019, 2015 DTaP/Tdap/Td Vaccines (7 - Td [...] this topic HPV Vaccines Completed 08/17/2016, 03/28/2013 Meningococcal B Vaccine Aged Out No l onger eligible based on patient's age to complete this topic Pneumococcal Vaccine: Pediatrics (0 to 5 Years) and At-Risk Patients (6 to 49) Years Aged Out No longer eligible based on patient's age to complete this topic RSV under 20 months Aged Out No longe r eligible based on patient's age to complete this topic Rotavirus Vaccines Aged Out No longer eligible based on patient's age to complete this topic
--- OUTSIDE RECORDS SUMMARY | 2025-03-11 14:46 | XMS_ITS | Clinical Summary ---
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 Name Role Phone Unavailable Primary Care Provider Unavailabl e Social History Tobacco Use Types Packs/Day Years Used Date Smoking Tobacco: Never Assessed Comments Unknown Sex and Gender Information Value Date Recorded Sex Assigned at Not on file Legal Sex Female 4:31 AM EST Gender Identity Not on file Sexual Orientation Not on file Obstetrics History Plan of Treatment Health Maintenance Due Date Last Done Comments Gonorrhea/Chlamydia Screening 2000 HPV Vaccines (1 - 3-dose series) 2015 DTaP,Tdap,and Td Vaccines (1 - Tdap) 2019 Hepatitis B Vaccines (1 of 3 - 19+ 3-dose series) 2019 Cervical Cancer Screening: P ap Smear 2021 COVID-19 Vaccine ( - 2023-2 5 season) 2024 Influenza Vaccine (#1) 2025 HIB Vaccines Aged Out No longer eligi ble based on patient's age to complete this topic Hepatitis A Vaccines Aged Out No long er eligible based on patient's age to complete this topic IPV Vaccines Aged Out No longer eligi ble based on patient's age to complete this topic MMR Vaccines Aged Out No longer eligi ble based on patient's age to complete this topic Meningococcal ACWY Vaccine Aged Out N o longer eligible based on patient's age to complete this topic Meningococcal B Vaccine Aged Out No l onger eligible based on patient's age to complete this topic Pneumococcal Vaccine: Pediat rics (0 to 5 Years) and At-Risk Patients (6 to 49 Years) Aged Out No longer eligible b ased on patient's age to complete this topic RSV Immunization Patients Un mendy 20 months Aged Out No longer eligible b ased on patient's age to complete this topic Varicella Vaccines Aged Out No longer eligible based on patient's age to complete this topic
== END 2025-03-11 14:32 | disposition home or self-care (01) ==
LOC: HO.HMCH 13:58
DX: Z76.89 Persons encountering health services in other specified circumstances (principal); M54.50 Low back pain, unspecified; Z3A.14 14 weeks gestation of pregnancy

== ENCOUNTER → 2025-03-11 13:57 | Outpatient (BNVA) | payer OTHER, SELFPAY | DX: O26.892 Other specified pregnancy related conditions, second trimester (principal); M54.50 Low back pain, unspecified; Z76.89 Persons encountering health services in other specified circumstances; Z3A.14 14 weeks gestation of pregnancy | CPT/HCPCS: 96127; 99202 ==